=== PATIENT | male | born 1980 | race Caucasian/White ===

== ENCOUNTER 2020-06-01 06:18 | Day surgery (SDC) | payer OTHER ==
[2020-06-01] MEDS ORDERED: MORPHINE 4 MG/ML SYR ONE ×2 (07:07→08:51)
[2020-06-01] MEDS ORDERED: ONDANSETRON 4 MG/2 ML VIAL ONE ×2 (07:07→10:38)
[2020-06-01 07:27] LABS: Absolute Lymphocytes (CBC) 0.9 K/uL (0.7-4.9); Basophils % 0.3 % (0-1.3); Hematocrit 45.8 % (39.6-49.0); Lymphocytes % 6.7 % (15.3-44.8); MPV 9.7 fL (7.6-11.3)
[2020-06-01 07:35] LABS: Albumin 3.9 g/dL (3.4-5.0); Bilirubin Direct 0.2 mg/dL (0-0.2); Bilirubin Total 0.8 mg/dL (0.2-1.0); Potassium 3.7 mmol/L (3.5-5.1); Protein, Total 7.5 g/dL (6.4-8.2)
[2020-06-01] MEDS ORDERED: ACETAMINOPHEN 500 MG TAB ONE ×3 (07:46→07:49)
[2020-06-01] MEDS ORDERED: CEFTRIAXONE/SWI 1gm 1 GM/10 ML SYR ONE (07:46)
--- NOTE | 2020-06-01 07:48 | RAD REPORT ---
EXAM DESCRIPTION: CT - Abdomen Pelvis W Contrast - 06/01/2020 7:37 am CLINICAL HISTORY: Abdominal pain COMPARISON: none. TECHNIQUE: Computed axial tomography of the abdomen pelvis was obtained. 100 cc Isovue-300 was admin istered intravenously. Oral contrast was not requested which limits evaluation of bowel. All CT scans are performed using dose optimization technique as appropriate and may include automated exposure control or mA/KV adjustment according to patient size. FINDINGS: The liver, spleen, pancreas, adrenal and kidneys appear unremarkable. There is no evidence of diverticulitis. The appendix is dilated. It contains appendicolith. The appendix extends inferiorly from the cecum. N o abscess. No free air. Small inguinal hernias contain fat. Small umbilical hernia IMPRESSION: Appendicitis
--- NOTE | 2020-06-01 08:45 | ER ---
Nurse's Notes [facility] Name: Candido Ludwig Age: 39 yrs Sex: Male : 1980 Arrival Date: 06/01/2020 Time: 06:19 Bed 5 Private MD: Diagnosis: Acute appendicitis Presentation: 06/01 06:34 Chief complaint: Patient states: pain under bellybutton and right lower quad. that em started yesterday at 0630, reports N/V, denies fever. Coronavirus screen: Client denies travel out of the [place] in the last 14 days. Ebola Screen: Patient negative for fever greater than or equal to 101.5 degrees Fahrenheit, and additional compatible Ebola Virus Disease symptoms Patient denies exposure to infectious person. Patient denies travel to an Ebola-affected area in the 21 days before illness onset. No symptoms or risks identified at this time. Initial Sepsis Screen: Does the patient meet any 2 criteria? HR > 90 bpm. No. Patient's initial sepsis screen is negative. Does the patient have a suspected source of infection? No. Patient's initial sepsis screen is negative. Risk Assessment: Do you want to hurt yourself or someone else? Patient reports no desire to harm self or others. Onset of symptoms was May 31, 2020. 06:34 Method Of Arrival: Ambulatory em 06:34 Acuity: KUNAL 3 em Historical: - Allergies: 06:36 No Known Allergies; em - PMHx: 06:36 None; em - PSHx: 06:36 None; em - Immunization history:: Adult Immunizations up to date. - Social history:: Smoking status: Patient denies any tobacco usage or history of. Screenin:49 Abuse screen: Denies threats or abuse. Nutritional screening: No deficits noted. ea Tuberculosis screening: No symptoms or risk factors identified. Fall Risk IV access (20 points). Assessment: 06:49 General: Appears in no apparent distress. Behavior is calm, cooperative, appropriate ea for age. Pain: Denies pain. Neuro: Level of Consciousness is awake, alert, obeys commands, Oriented to person, place, time. Cardiovascular: Patient's skin is warm and dry. Respiratory: Airway is patent Respiratory effort is even, unlabored, Respiratory pattern is regular, symmetrical. GI: Abdomen is non-distended. GI: Reports lower abdominal pain. Derm: Skin is pink, warm \T\ dry. 07:27 Reassessment: Patient appears in no apparent distress at this time. Pt reports jl7 decreased pain, rated 0/10. Pt noted to be shivering, oral temp 100.7, ERD notified, see MAR for orders. Pt to CT at this time. 08:30 Reassessment: Patient appears in no apparent distress at this time. Patient and/or jl7 family updated on plan of care and expected duration. Pain level reassessed. Patient is alert, oriented x 3, equal unlabored respirations, skin warm/dry/pink. Pt reporting increased pain, rated 7/10, ERD notified, see MAR for orders. 09:11 Reassessment: Dr. Lechuga at bedside. jl7 09:24 Reassessment: EXTENSION SERVICE SPECIALIST at bedside. jl7 Vital Signs: 06:34 BP 116 / 88; Pulse 101; Resp 20; Temp 99.2; Pulse Ox 100% on R/A; Weight 81.65 kg; em Height 5 ft. 10 in. (177.80 cm); Pain 6/10; 07:26 BP 128 / 77; Pulse 105; Resp 19; Temp 100.7; Pulse Ox 100% ; Pain 0/10; jl7 08:53 BP 108 / 69; Pulse 103; Resp 15; Pulse Ox 97% ; jl7 09:24 Temp 102.2; jl7 06:34 Body Mass Index 25.83 (81.65 kg, 177.80 cm) em ED Course: 06:19 Patient arrived in ED. bp1 06:35 Jamie Isabel MD is Attending Physician. 7 06:35 Triage completed. em 06:36 Arm band placed on. em 06:48 Inserted saline lock: 20 gauge in left antecubital area, using aseptic technique. Blood ea collected. 06:49 Patient has correct armband on for positive identification. Bed in low position. Call ea light in reach. Side rails up X2. 07:16 Corby Gutierrez, RN is Primary Nurse. jb4 07:58 Attending Physician role handed off by Jamie Isabel MD ma2 07:58 Carlos Gilman MD is Attending Physician. ma2 08:17 Primary Nurse role handed off by Corby Gutierrez, COLLEEN bd 08:23 Corona Trujillo RN is Primary Nurse. jl7 08:44 David Lechuga MD is Hospitalizing Provider. ma2 09:24 No provider procedures requiring assistance completed. COVID swab sent to lab. Patient jl7 admitted, IV remains in place. intact, No redness/swelling at site. Administered Medications: 06:56 Drug: Zofran (Ondansetron) 4 mg Route: IVP; Site: left antecubital; ea 07:26 Follow up: Response: No adverse reaction; Nausea is decreased jl7 06:56 Drug: NS 0.9% 1000 ml Route: IV; Rate: 1000 ml; Site: left antecubital; ea 08:35 Follow up: IV Status: Completed infusion; IV Intake: 1000ml 7 06:57 Drug: morphine 4 mg Route: IVP; Site: left antecubital; ea 07:26 Follow up: Response: No adverse reaction; Pain is decreased jl7 07:55 Drug: Tylenol 1000 mg Route: PO; jl7 09:24 Follow up: Temp 102.2; Response: Temperature is increased jl7 07:55 Drug: Rocephin 1 grams Route: IV; Rate: calculated rate; Site: left antecubital; jl7 07:58 Follow up: Response: No adverse reaction; IV Status: Completed infusion 7 08:40 Drug: morphine 4 mg Route: IVP; Site: left antecubital; jl7 09:00 Follow up: Response: No adverse reaction; Pain is decreased 7 08:42 Drug: LevaQUIN 750 mg Volume: 150 ml; Route: IVPB; Infused Over: 90 mins; Site: left jl7 antecubital; 09:25 Follow up: IV Status: Infusion continued upon admission jl7 08:42 Drug: D5-1/2 NS 1000 ml Route: IV; Rate: 125 ml/hr; Site: left antecubital; jl7 09:25 Follow up: IV Status: Infusion continued upon admission [facility] Intake: 08:35 IV: 1000ml; Total: 1000ml. [facility] Outcome: 08:44 Decision to Hospitalize by Provider. ma2 09:24 Admitted to OR accompanied by nurse, via stretcher, with chart, Report called to villa Parker RN 09:24 Condition: stable 09:24 Discharge instructions given to patient, Instructed on the need for admit, Demonstrated understanding of instructions. 09:31 Patient left the ED. jl7 Signatures: Chloe Hill Edgar, RN RN Corby Javier RN RN jb4 Corona Trujillo RN RN jl7 Melissa Low RN RN ea Alzahri, Mohammad, MD MD ma2 Yue Denton Maurice, MD MD 7 Corrections: (The following items were deleted from the chart) 08:53 08:30 BP 108 / 69; Pulse 103bpm; Resp 15bpm; Pulse Ox 97%; jl7 jl7
--- NOTE | 2020-06-01 08:45 | EDPHYS ---
Physician Documentation [facility] Name: Candido Ludwig Age: 39 yrs Sex: Male : 1980 Arrival Date: 06/01/2020 Time: 06:19 Bed 5 Private MD: ED Physician Carlos Gilman HPI: 06/01 06:48 This 39 yrs old Male presents to ER via Ambulatory with complaints of Flank mh7 Pain, Vomiting. 06:48 The patient presents with abdominal pain in the periumbilical area. Onset: The mh7 symptoms/episode began/occurred last night. The symptoms do not radiate. Associated signs and symptoms: Pertinent positives: nausea and vomiting, Pertinent negatives: anorexia, blood in stools, chest pain, constipation, diarrhea, dysuria, fever, headache, hematuria, palpitations, shortness of breath, testicular pain, vomiting blood. The symptoms are described as intermittent, vague, waxing/waning. Modifying factors: The symptoms are alleviated by nothing, the symptoms are aggravated by nothing. Severity of pain: At its worst the pain was moderate last night, in the emergency department the pain is unchanged. Historical: - Allergies: 06:36 No Known Allergies; em - PMHx: 06:36 None; em - PSHx: 06:36 None; em - Immunization history:: Adult Immunizations up to date. - Social history:: Smoking status: Patient denies any tobacco usage or history of. ROS: 06:48 Constitutional: Negative for fever, chills, and weight loss, Eyes: Negative for injury, mh7 pain, redness, and discharge, ENT: Negative for injury, pain, and discharge, Neck: Negative for injury, pain, and swelling, Cardiovascular: Negative for chest pain, palpitations, and edema, Respiratory: Negative for shortness of breath, cough, wheezing, and pleuritic chest pain, Back: Negative for injury and pain, : Negative for injury, bleeding, discharge, and swelling, MS/Extremity: Negative for injury and deformity, Skin: Negative for injury, rash, and discoloration, Neuro: Negative for headache, weakness, numbness, tingling, and seizure, Psych: Negative for depression, anxiety, suicide ideation, homicidal ideation, and hallucinations, Allergy/Immunology: Negative for hives, rash, and allergies, Endocrine: Negative for neck swelling, polydipsia, polyuria, polyphagia, and marked weight changes, Hematologic/Lymphatic: Negative for swollen nodes, abnormal bleeding, and unusual bruising. Exam: 06:48 Head/Face: Normocephalic, atraumatic. Eyes: Pupils equal round and reactive to light, mh7 extra-ocular motions intact. Lids and lashes normal. Conjunctiva and sclera are non-icteric and not injected. Cornea within normal limits. Periorbital areas with no swelling, redness, or edema. Neck: Trachea midline, no thyromegaly or masses palpated, and no cervical lymphadenopathy. Supple, full range of motion without nuchal rigidity, or vertebral point tenderness. No Meningismus. Chest/axilla: Normal chest wall appearance and motion. Nontender with no deformity. No lesions are appreciated. Cardiovascular: Regular rate and rhythm with a normal S1 and S2. No gallops, murmurs, or rubs. Normal PMI, no JVD. No pulse deficits. Respiratory: Lungs have equal breath sounds bilaterally, clear to auscultation and percussion. No rales, rhonchi or wheezes noted. No increased work of breathing, no retractions or nasal flaring. 06:48 Back: No spinal tenderness. No costovertebral tenderness. Full range of motion. Skin: Warm, dry with normal turgor. Normal color with no rashes, no lesions, and no evidence of cellulitis. MS/ Extremity: Pulses equal, no cyanosis. Neurovascular intact. Full, normal range of motion. Neuro: Awake and alert, GCS 15, oriented to person, place, time, and situation. Cranial nerves II-XII grossly intact. Motor strength 5/5 in all extremities. Sensory grossly intact. Cerebellar exam normal. Normal gait. Psych: Awake, alert, with orientation to person, place and time. Behavior, mood, and affect are within normal limits. 06:48 Constitutional: The patient appears in no acute distress, alert, awake, uncomfortable. 06:48 Abdomen/GI: Inspection: abdomen appears normal, Bowel sounds: normal, in all quadrants, Palpation: moderate abdominal tenderness, in the umbilical area, right lower quadrant and left lower quadrant, Rectal exam: the exam is deferred, because of patient request, Indicators: McBurney's point is not tender, Lyles's sign is negative, Rovsing's sign is negative, Obturator sign is negative, Psoas sign is negative, Liver: no appreciated palpable abnormalities, Hernia: not appreciated. Vital Signs: 06:34 BP 116 / 88; Pulse 101; Resp 20; Temp 99.2; Pulse Ox 100% on R/A; Weight 81.65 kg; em Height 5 ft. 10 in. (177.80 cm); Pain 6/10; 07:26 BP 128 / 77; Pulse 105; Resp 19; Temp 100.7; Pulse Ox 100% ; Pain 0/10; jl7 08:53 BP 108 / 69; Pulse 103; Resp 15; Pulse Ox 97% ; jl7 09:24 Temp 102.2; jl7 06:34 Body Mass Index 25.83 (81.65 kg, 177.80 cm) em MDM: 06:59 Transition of care: After a detail discussion of the patient's case, care is 7 transferred to Carlos Gilman MD. 07:58 Patient medically screened. ma2 08:43 Differential diagnosis: gastritis, gastroesophageal reflux disease, Irritable bowel ma2 syndrome, Prostatitis, Pyelonephritis. Data reviewed: vital signs, nurses notes. Counseling: I had a detailed discussion with the patient and/or guardian regarding: the historical points, exam findings, and any diagnostic results supporting the discharge/admit diagnosis, the presence of at least one elevated blood pressure reading (>120/80) during this emergency department visit, the need for outpatient follow up. Response to treatment: the patient's symptoms have markedly improved after treatment. 06/01 07:28 Order name: CBC with Automated Diff; Complete Time: 07:58 EDMS 06/01 07:36 Order name: Basic Metabolic Panel; Complete Time: 07:58 EDMS 06/01 07:36 Order name: Liver (Hepatic) Function; Complete Time: 07:58 EDMS 06/01 07:36 Order name: Lipase; Complete Time: 07:58 EDMS 06/01 07:50 Order name: CT; Complete Time: 07:58 EDMS 06/01 08:48 Order name: Urine Dipstick--Ancillary (enter results) bd 06/01 06:48 Order name: IV Saline Lock; Complete Time: 06:55 [facility] 06/01 06:48 Order name: Labs collected and sent; Complete Time: 06:55 [facility] 06/01 06:52 Order name: Urine Dipstick-Ancillary (obtain specimen); Complete Time: 08:40 [facility] 06/01 08:07 Order name: NPO; Complete Time: 08:25 ma2 Administered Medications: 06:56 Drug: Zofran (Ondansetron) 4 mg Route: IVP; Site: left antecubital; ea 07:26 Follow up: Response: No adverse reaction; Nausea is decreased [facility] 06:56 Drug: NS 0.9% 1000 ml Route: IV; Rate: 1000 ml; Site: left antecubital; ea 08:35 Follow up: IV Status: Completed infusion; IV Intake: 1000ml [facility] 06:57 Drug: morphine 4 mg Route: IVP; Site: left antecubital; ea 07:26 Follow up: Response: No adverse reaction; Pain is decreased 7 07:55 Drug: Tylenol 1000 mg Route: PO; 7 09:24 Follow up: Temp 102.2; Response: Temperature is increased [facility] 07:55 Drug: Rocephin 1 grams Route: IV; Rate: calculated rate; Site: left antecubital; jl7 07:58 Follow up: Response: No adverse reaction; IV Status: Completed infusion 7 08:40 Drug: morphine 4 mg Route: IVP; Site: left antecubital; 7 09:00 Follow up: Response: No adverse reaction; Pain is decreased 7 08:42 Drug: LevaQUIN 750 mg Volume: 150 ml; Route: IVPB; Infused Over: 90 mins; Site: left 7 antecubital; 09:25 Follow up: IV Status: Infusion continued upon admission jl7 08:42 Drug: D5-1/2 NS 1000 ml Route: IV; Rate: 125 ml/hr; Site: left antecubital; 7 09:25 Follow up: IV Status: Infusion continued upon admission jl Disposition: 06/01/20 08:44 Hospitalization ordered by David Lechuga for Inpatient Admission. Preliminary diagnosis is Acute appendicitis. - Bed requested for Telemetry/MedSurg (Inpatient). - Status is Inpatient Admission. jl7 - Condition is Stable. - Problem is new. - Symptoms are unchanged. Signatures: Dispatcher [employer] Jordan Trent RN RN Corona Mahmood RN RN jl7 Melissa Low RN Carlos Jarrett ea, MD MD ma2 Jamie Isabel MD MD mh7 Corrections: (The following items were deleted from the chart) 08:19 08:16 Abdomen Pelvis W Con+CT.RAD.BRZ ordered. EDMS EDMS 08:52 08:16 BASIC METABOLIC PANEL+C.LAB.BRZ ordered. EDMS EDMS 08:52 08:16 CBC+H.LAB.BRZ ordered. EDMS EDMS 08:52 08:16 HEPATIC FUNCTION+C.LAB.BRZ ordered. EDMS EDMS 08:52 08:16 LIPASE+C.LAB.BRZ ordered. EDMS EDMS 09:31 08:44 Hospitalization Ordered by David Lechuga MD for Inpatient Admission. Preliminary jl7 diagnosis is Acute appendicitis. Bed requested for Telemetry/MedSurg (Inpatient). Status is Inpatient Admission. Condition is Stable. Problem is new. Symptoms are unchanged. ma2
[2020-06-01] MEDS ORDERED: Levofloxacin 750mg IV 750 MG/150 ML BAG IV ONE (08:51)
[2020-06-01] MEDS ORDERED: D5 0.45 NS 1,000 ML IV ONE (08:51)
[2020-06-01 09:18] LABS: Urine Blood NEGATIVE (NEG); Urine Glucose NEGATIVE (NEG); Urine Protein NEGATIVE (NEG); Urine pH 6.5 (5.0-7.0)
[2020-06-01] MEDS: NA CHLORIDE 0.9% 1,000 ML ONE ×2 (09:35→10:30)
[2020-06-01] MEDS ORDERED: Ringers Lactate 1,000 ML IV ONE ×3 (09:53→12:14)
[2020-06-01] MEDS ORDERED: FENTANYL CITR 100 MCG/2 ML ONE ×2 (10:35→11:30)
[2020-06-01] MEDS ORDERED: propofoL 200 MG/20 ML VIAL IV ONE (10:35)
[2020-06-01] MEDS ORDERED: dexAMETHasone 10 MG/ML VIAL ONE (10:36)
[2020-06-01] MEDS ORDERED: MIDAZOLAM HCL 2 MG/2 ML INJ ONE (10:36)
[2020-06-01] MEDS ORDERED: ROCURONIUM 50 MG/5 ML VIAL IV ONE (10:36)
[2020-06-01] MEDS ORDERED: KETOROLAC 30 MG/ML INJ ONE (10:36)
[2020-06-01] MEDS ORDERED: LIDOCAINE 2% MPF 5 ML VIAL ONE (10:36)
--- NOTE | 2020-06-01 10:36 | P.BOP ---
Preoperative diagnosis: acute appendicitis, umbilical hernia, bilateral inguinal hernias Postoperative diagnosis: same Primary procedure: 1. Laparoscopic appendectomy Secondary procedure: 2. open repair of incarcerated umbilical hernia Veterinary Livestock Inspector: DIANA PADGETT (STICKER MACHINE OPERATOR) Estimated blood loss: <10cc Specimen: araceli Findings: as above Anesthesia: General Complications: None Transferred to: Recovery Room Condition: Good
[2020-06-01] MEDS ORDERED: SUCCINYLCHOLINE 20 MG/ML (10 ML) IV ONE (10:41)
[2020-06-01] MEDS ORDERED: NS 0.9% VIAL 10 ML ONE (10:51)
[2020-06-01] MEDS ORDERED: Phenylephrine HCl 10 MG/ML 1 ML VIAL ONE (10:51)
--- NOTE | 2020-06-01 10:52 | HP ---
Date of Admission: 06/01/2020 Reason For Service: Right lower quadrant abdominal pain. History Of Present Illness: This is a case of a 39-year-old patient who complained of periumbilical right lower quadrant pain that started last night, associated with nausea, vomiting. Today, he decid ed to come to the ER. When he came to the ER, he was diagnosed with an acute appendicitis and a surg ical evaluation was requested. He denies any dysuria, hematuria, hematochezia, melena. He denies an y recent traveling out of the country. He denies any family member sick at home. Yesterday, he was eating [place] food with some friends and family and they are not sick. Allergies: NONE. Past Medical History: None. Surgical History: He has a lipoma removed from the neck at [facility]. We have no documentation of th at. Social History: He does not smoke. He does not drink alcohol. Review of Systems: Ten points otherwise unremarkable. See H and P. Physical Examination: GENERAL: The patient is awake, alert. HEENT: Pupils are equal and reactive, anicteric. Neck: Supple. Chest: Clear. Heart: S1, S2. Abdomen: Right lower quadrant tenderness with guarding and rebound. Rovsing sign positive. Genitalia: No tenderness. Rectal: Deferred. Extremities: Good capillary refill. Neuro: Cranial nerves 2 through 12 grossly within normal limits. Laboratory Data: Blood work shows WBC count of 14 with hemoglobin of 15. Creatinine is 1.07, BUN is 18. Sodium is 140. CAT scan of abdomen and pelvis interpreted by Dr. Putnam as acute appendicitis . Assessment: A 39-year-old patient with acute appendicitis. Plan: Laparoscopic, possible open appendectomy fully explained to the patient which include, but not limited to infection, bleeding, damage to adjacent structures, anesthesia complication, ME, even luiza th. He also understands this may not relieve symptoms. He might need more than one surgical interve ntion. He understood, signed a consent. The patient also was explained the CAT scan findings of umb ilical hernia and inguinal hernia. I might try to see if I can fix the umbilical hernia at this time . There is no guarantee, but definitely the inguinal hernias will be done electively. He understand s the importance of doing that electively since this is a contaminated procedure. He understood. He is aware of that. We will call the ER, emergently book the patient for appendectomy. RAVIN Voice ID: [id number]
[2020-06-01] MEDS ORDERED: GLYCOPYRROLATE 0.2 MG/ML SYR ONE (11:30)
[2020-06-01] MEDS ORDERED: NEOSTIGMINE 1 MG/ML -5 ML ONE (11:33)
[2020-06-01] MEDS ORDERED: PROMETHAZINE INJ 25 MG/ML AMP ONE (12:13)
[2020-06-01] MEDS ORDERED: HYDROMORPHONE HCL 2 MG/ML inj ONE (12:14)
--- NOTE | 2020-06-01 12:22 | OP ---
Date of Procedure: 06/01/2020 Surgeon: David Lechuga MD Improvement Auditor: ALEX Ibrahim Preoperative Diagnoses: Acute appendicitis, umbilical hernia, bilateral inguinal hernias. Postoperative Diagnoses: Acute appendicitis, umbilical hernia, bilateral inguinal hernias. Procedures: 1.Laparoscopic appendectomy emergently. 2.Open repair of incarcerated umbilical hernia. Estimated Blood Loss: Less than 10 mL. Specimen: Appendix. Finding: Acute appendicitis, incarcerated omentum on the hernia. Complications: None. Indications: This is a case of a 39-year-old patient comes to us with multiple medical problems, but now comes for emergent procedure due to acute appendicitis. Benefits, alternatives, and risks of ac ra laparoscopic possible open appendectomy and umbilical hernia repair fully explained to the patien t which include, but not limited to infection, bleeding, damage to adjacent structures, anesthesia co mplication, CO and even . He also understands this may not relieve his symptoms. He might need more than one surgical intervention. He understood and signed a consent. He understands the presen ce of bilateral inguinal hernias also, that may have to be repaired electively when the area and infe ction goes away. He understand that too. Description Of Procedure: The patient was brought to the operating room emergently, placed in supine position. Anesthesia was done without complication. Abdominal area was prepped and draped in usual sterile fashion. Marcaine 0.5% was injected for local anesthetic followed by sharp incision of the skin in the infraumbilical region. Incision was carried down to fascia, which was opened under direc t vision. We noticed the patient to have umbilical hernia. We were able to include that umbilical h ernia as part of the repair, so we removed the hernia sac, incarcerated omentum. The omentum was all owed to retract back into the abdominal cavity after fully inspected to make sure there was no bleedi ng. The hernia sac was removed. The fascial edges were clean. I proceeded to place a Vicryl #1 ins marlen the fascia. Janiya trocar was carefully introduced. No bleeding was obtained. I placed 2 more trocars 5 mm each one of them in the suprapubic and left lower quadrant area under direct visualizati on. This allowed me to take a look at the area of the appendix, appeared to look inflamed and erythe matous and asymmetrical in shape and color. The base of the appendix seemed to be spared, so we crea travon a window at the base of the appendix and transected that with Endo CHENCHO 45 mm 3.5 and the mesoappe ndix with Endo CHENCHO 45 mm 2.5. Further hemostasis was obtained with the help of hemoclips. The area was irrigated. Appendix removed from abdominal cavity using EndoCatch through umbilical incision. T he area was inspected once again, no bowel leak, no bleeding. At that moment, I proceeded to remove the trocars under direct vision, deflated pneumoperitoneum, closed the fascia with #1 Vicryl, irrigat ed subcutaneous tissue, closed with 3-0 chromic and skin with twin. Sponge count, instrument coun ts were correct. The patient tolerated the procedure well. The patient was sent to Recovery in stab le condition. DAISY/MACHO Voice ID: [id number] Report ID: [id number]
--- NOTE | 2020-06-01 12:28 | DS ---
Diagnoses: Acute appendicitis, umbilical hernia. Procedure: Laparoscopic appendectomy and open repair of incarcerated umbilical hernia. Disposition: Home. Activity: As tolerated. No heavy lifting. Plan: Follow up in my office in 1 week. Call for appointment at [phone]. Keep area dry for 48 hours , then may shower then may cover the staple line with triple antibiotics. If the patient feels good and pain can be controlled with p.o. medication, then, he is open to be going home today, but if he g oes home, then full liquid diet for today and tomorrow and then resume normal diet. No heavy lifting , no more than 20 pounds. DAISY/MACHO Voice ID: [id number] Report ID: [id number]
[2020-06-01 12:39] VITALS: BP 100/66; O2SAT 98
[2020-06-01 14:17] VITALS: TEMP 97.4
== END 2020-06-01 14:09 | disposition home or self-care (01) ==
LOC: ER 06:18 → DS 13:01
PROVIDERS: ATTEND Surgery
PROC: 0WQF0ZZ Repair Abdominal Wall, Open Approach (ICD-10-PCS; 2020-06-01)
PROC: 0DTJ4ZZ Resection of Appendix, Percutaneous Endoscopic Approach (ICD-10-PCS; principal; 2020-06-01 11:30)
DX: K35.80 Unspecified acute appendicitis (principal); K42.0 Umbilical hernia with obstruction, without gangrene; U07.1 COVID-19; K40.20 Bilateral inguinal hernia, without obstruction or gangrene, not specified as recurrent
CPT/HCPCS: 96365; 96361; 85025; 80048; 36415; 82565; 80076; 88302; 88304; 81003; 83690; 74177; 96375; 99285; 44970; 49587; U0003; Q9967; J2704; J0330; J2370; J2250; J3010 ×2; J1100; J2710; J0696; J7799; J7120 ×3; J7030; J2405 ×2; J1170; J2550

== ENCOUNTER 2020-06-04 10:51 | Observation (INO) | payer OTHER ==
--- NOTE | 2020-06-04 13:30 | ER ---
Nurse's Notes [facility] Name: Candido Ludwig Age: 39 yrs Sex: Male : 1980 Arrival Date: 06/04/2020 Time: 11:02 Bed 25 Private MD: Diagnosis: Hemorrhoids and perianal venous thrombosis Presentation: 06/04 11:03 Chief complaint: Patient states: Large Hemoriod and pain since yesterday. No bleeding, sv sever pain. Had appendectomy Monday. Coronavirus screen: Client denies travel out of the [place] in the last 14 days. Client reports previous positive COVID test result. Ebola Screen: Patient denies travel to an Ebola-affected area in the 21 days before illness onset. Initial Sepsis Screen: Does the patient meet any 2 criteria? No. Patient's initial sepsis screen is negative. Does the patient have a suspected source of infection? Yes:. Risk Assessment: Do you want to hurt yourself or someone else? Patient reports no desire to harm self or others. Onset of symptoms was June 03, 2020. 11:03 Method Of Arrival: Ambulatory sv 11:03 Acuity: KUNAL 3 sv Historical: - Allergies: 11:03 No Known Allergies; sv - PMHx: 11:03 None; sv - PSHx: 11:03 Appendectomy; sv - Immunization history:: Flu vaccine is not up to date. - Social history:: Smoking status: Patient denies any tobacco usage or history of. Screenin:26 Abuse screen: Denies threats or abuse. Nutritional screening: No deficits noted. vg1 Tuberculosis screening: No symptoms or risk factors identified. Fall Risk No fall in past 12 months (0 pts). No secondary diagnosis (0 pts). No IV (0 pts). Ambulatory Aid- None/Bed Rest/Nurse Assist (0 pts). Gait- Normal/Bed Rest/Wheelchair (0 pts) Mental Status- Oriented to own ability (0 pts). Total Hall Fall Scale indicates No Risk (0-24 pts). Assessment: 12:15 General: Appears in no apparent distress. uncomfortable, Behavior is calm, cooperative. vg1 Pain: Complains of pain in rectal area Pain currently is 8 out of 10 on a pain scale. Quality of pain is described as throbbing, Noted to be grimacing, resistant to movement. Neuro: Level of Consciousness is awake, alert, obeys commands, Oriented to person, place, time, situation. Cardiovascular: Patient's skin is warm and dry. Respiratory: Airway is patent Respiratory effort is even, unlabored. GI: Reports diarrhea, Parent/caregiver reports the patient having On Monday patient had a appendectomy and has had diarrhea since then. Denies straining and denies bleeding. : No signs and/or symptoms were reported regarding the genitourinary system. EENT: No signs and/or symptoms were reported regarding the EENT system. Derm: Skin is intact, is healthy with good turgor. Musculoskeletal: Circulation, motion, and sensation intact. 13:39 Reassessment: Spoke with rikki Ferro to verify if patient needs to have a Covid vg1 swab due to admit. Patient was seen on Monday for an appendectomy. Kasie stated Covid results for Monday are good for 10 days. Provider notified that patient does not need to received another Covid swab for current admit. 14:17 Reassessment: Patient appears in no apparent distress at this time. No changes from vg1 previously documented assessment. Patient and/or family updated on plan of care and expected duration. Pain level reassessed. Patient is alert, oriented x 3, equal unlabored respirations, skin warm/dry/pink. 17:18 Reassessment: Attempted to call report. vg1 Vital Signs: 11:03 BP 141 / 95; Pulse 70; Resp 17; Temp 98.4; Pulse Ox 99% on R/A; Weight 81.65 kg; Height sv 5 ft. 10 in. (177.80 cm); Pain 7/10; 12:15 BP 124 / 100; Pulse 65; Resp 16; Pulse Ox 100% on R/A; vg1 13:00 BP 138 / 99; Pulse 61; Resp 16; Pulse Ox 100% on R/A; vg1 14:00 BP 146 / 92; Pulse 77; Resp 14; Pulse Ox 98% on R/A; vg1 11:03 Body Mass Index 25.83 (81.65 kg, 177.80 cm) sv ED Course: 11:02 Patient arrived in ED. sv 11:02 Arm band placed on. sv 11:05 Triage completed. sv 12:23 Herminia Salter, RN is Primary Nurse. vg1 12:27 Louis Smith PA is PHCP. jr8 12:27 Samm Zapien MD is Attending Physician. jr8 12:27 Patient has correct armband on for positive identification. Bed in low position. Call vg1 light in reach. Side rails up X 1. 13:29 David Lechuga MD is Hospitalizing Provider. jr8 14:19 Initial lab(s) drawn, by ED staff, sent to lab. Inserted saline lock: 20 gauge in left vg1 antecubital area, using aseptic technique. ,using aseptic technique. Done by [employer] Student with Eric MACIAS. Blood collected. 14:25 Basic Metabolic Panel Sent. sv 14:25 CBC with Diff Sent. sv 17:52 No provider procedures requiring assistance completed. Patient admitted, IV remains in vg1 place. Administered Medications: 14:16 Drug: fentaNYL (PF) 75 mcg {Note: rass0.} Route: IVP; Site: left antecubital; vg1 15:52 Follow up: Response: No adverse reaction; Pain is decreased vg1 14:16 Drug: Zofran (Ondansetron) 4 mg Route: IVP; Site: left antecubital; vg1 15:30 Follow up: Response: No adverse reaction vg1 15:52 Follow up: Response: No adverse reaction; Nausea is decreased vg1 Outcome: 13:29 Decision to Hospitalize by Provider. jr8 17:52 Admitted to Med/surg accompanied by tech, via stretcher, room 404, with chart, Report vg1 called to COLLEEN MEHTA 17:52 Condition: stable 17:52 Instructed on the need for admit. 18:01 Patient left the ED. vg1 Signatures: Hermila Quintanilla RN RN Louis Smith PA PA jr8 Herminia Salter RN RN vg1 Corrections: (The following items were deleted from the chart) 12:26 12:15 Pain: Complains of pain in anus Pain currently is 8 out of 10 on a pain scale. vg1 Quality of pain is described as throbbing, Noted to be grimacing, resistant to movement, vg1
--- NOTE | 2020-06-04 13:30 | EDPHYS ---
Physician Documentation [facility] Name: Candido Ludwig Age: 39 yrs Sex: Male : 1980 Arrival Date: 06/04/2020 Time: 11:02 Bed 25 Private MD: ED Physician Samm Zapien HPI: 06/04 13:25 This 39 yrs old Male presents to ER via Ambulatory with complaints of Rectal jr8 Pain. 13:25 Onset: The symptoms/episode began/occurred acutely, yesterday. Context: the patient has jr8 a known history of hemorrhoids. Modifying factors: The symptoms are alleviated by nothing, The symptoms are aggravated by movement, sitting position. Associate signs and symptoms: The patient has no apparent associated signs or symptoms. The patient has not experienced similar symptoms in the past. The patient has been recently seen by a physician:. Patient stated that he recently had appendectomy this past Monday. Uncomplicated and had been doing well. History of hemorrhoids in past. Stated that he felt sore on a hemorrhoid yesterday but today is now much worse and with a lot more swelling . Historical: - Allergies: 11:03 No Known Allergies; sv - PMHx: 11:03 None; sv - PSHx: 11:03 Appendectomy; sv - Immunization history:: Flu vaccine is not up to date. - Social history:: Smoking status: Patient denies any tobacco usage or history of. ROS: 13:25 Eyes: Negative for injury, pain, redness, and discharge, ENT: Negative for injury, jr8 pain, and discharge, Neck: Negative for injury, pain, and swelling, Cardiovascular: Negative for chest pain, palpitations, and edema, Respiratory: Negative for shortness of breath, cough, wheezing, and pleuritic chest pain, Abdomen/GI: Negative for abdominal pain, nausea, vomiting, diarrhea, and constipation. Positive for rectal pain Back: Negative for injury and pain, MS/Extremity: Negative for injury and deformity, Skin: Negative for injury, rash, and discoloration, Neuro: Negative for headache, weakness, numbness, tingling, and seizure. Exam: 13:25 Constitutional: This is a well developed, well nourished patient who is awake, alert, jr8 and in no acute distress. Respiratory: Lungs have equal breath sounds bilaterally, clear to auscultation and percussion. No rales, rhonchi or wheezes noted. No increased work of breathing, no retractions or nasal flaring. Abdomen/GI: Soft, non-tender, with normal bowel sounds. No distension or tympany. No guarding or rebound. No evidence of tenderness throughout. Back: No spinal tenderness. No costovertebral tenderness. Full range of motion. Skin: Warm, dry with normal turgor. Normal color with no rashes, no lesions, and no evidence of cellulitis. MS/ Extremity: Pulses equal, no cyanosis. Neurovascular intact. Full, normal range of motion. Neuro: Awake and alert, GCS 15, oriented to person, place, time, and situation. Cranial nerves II-XII grossly intact. Motor strength 5/5 in all extremities. Sensory grossly intact. Cerebellar exam normal. Normal gait. 13:25 Abdomen/GI: Rectal exam: rectal tone normal, Stool: brown, hemorrhoid(s), internal, with inflammation, with pain, with thrombosis, the exam is chaperoned by the nurse. Vital Signs: 11:03 BP 141 / 95; Pulse 70; Resp 17; Temp 98.4; Pulse Ox 99% on R/A; Weight 81.65 kg; Height sv 5 ft. 10 in. (177.80 cm); Pain 7/10; 12:15 BP 124 / 100; Pulse 65; Resp 16; Pulse Ox 100% on R/A; vg1 13:00 BP 138 / 99; Pulse 61; Resp 16; Pulse Ox 100% on R/A; vg1 14:00 BP 146 / 92; Pulse 77; Resp 14; Pulse Ox 98% on R/A; vg1 11:03 Body Mass Index 25.83 (81.65 kg, 177.80 cm) sv MDM: 12:27 Patient medically screened. jr8 13:25 Data reviewed: vital signs, nurses notes, lab test result(s). Data interpreted: Pulse jr8 oximetry: on room air is 100 %. Interpretation: normal. Counseling: I had a detailed discussion with the patient and/or guardian regarding: the historical points, exam findings, and any diagnostic results supporting the discharge/admit diagnosis, lab results, the need for further work-up and treatment in the hospital. ED course: Spoke with Dr. Lechuga who saw patient in ED. Plans to take patient to surgery in the AM for thrombosed hemorrhoid . 06/04 13:17 Order name: CBC with Diff jr8 06/04 13:17 Order name: Basic Metabolic Panel jr8 06/04 13:18 Order name: CBC with Automated Diff; Complete Time: 14:13 EDMS 06/04 13:18 Order name: Basic Metabolic Panel; Complete Time: 14:13 EDMS 06/04 13:42 Order name: Type And Screen; Complete Time: 15:27 vg1 06/04 13:17 Order name: IV; Complete Time: 14:17 jr8 06/04 15:01 Order name: Diet Full Liquid; Complete Time: 15:02 vg1 Administered Medications: 14:16 Drug: fentaNYL (PF) 75 mcg {Note: rass0.} Route: IVP; Site: left antecubital; vg1 15:52 Follow up: Response: No adverse reaction; Pain is decreased vg1 14:16 Drug: Zofran (Ondansetron) 4 mg Route: IVP; Site: left antecubital; vg1 15:30 Follow up: Response: No adverse reaction vg1 15:52 Follow up: Response: No adverse reaction; Nausea is decreased vg1 Disposition: 06/05 06:05 Co-signature as Attending Physician, Samm Zapien MD I agree with the assessment and kdr plan of care. Disposition: 06/04/20 13:29 Hospitalization ordered by David Lechuga for Observation. Preliminary diagnosis is Hemorrhoids and perianal venous thrombosis. - Bed requested for Telemetry/MedSurg (Inpatient). - Status is Observation. vg1 - Condition is Stable. - Problem is new. - Symptoms are unchanged. Signatures: Dispatcher [employer] Hermila Lynch RN Samm Fung MD MD kdr Martinez, Eric em1 Louis Smith PA PA jr8 Herminia Salter RN RN vg1 Corrections: (The following items were deleted from the chart) 06/04 14:09 13:29 Hospitalization Ordered by David Lechuga MD for Observation. Preliminary em1 diagnosis is Hemorrhoids and perianal venous thrombosis. Bed requested for Telemetry/MedSurg (observation). Status is Observation. Condition is Stable. Problem is new. Symptoms are unchanged. jr8 17:14 14:09 06/04/2020 13:29 Hospitalization Ordered by David Lechuga MD for Observation. sv Preliminary diagnosis is Hemorrhoids and perianal venous thrombosis. Bed requested for [facility] ER HOLD. Status is Observation. Condition is Stable. Problem is new. Symptoms are unchanged. em1 18:01 17:14 06/04/2020 13:29 Hospitalization Ordered by David Lechuga MD for Observation. vg1 Preliminary diagnosis is Hemorrhoids and perianal venous thrombosis. Bed requested for Telemetry/MedSurg (Inpatient). Status is Observation. Condition is Stable. Problem is new. Symptoms are unchanged. sv
[2020-06-04] MEDS ORDERED: FENTANYL CITR 100 MCG/2 ML ONE (13:38)
[2020-06-04] MEDS ORDERED: ONDANSETRON 4 MG/2 ML VIAL ONE ×2 (13:38→17:12)
[2020-06-04 14:01] LABS: Absolute Lymphocytes (CBC) 1.5 K/uL (0.7-4.9); Basophils % 0.5 % (0-1.3); Hematocrit 42.2 % (39.6-49.0); Lymphocytes % 21.2 % (15.3-44.8); MPV 9.1 fL (7.6-11.3)
[2020-06-04] MEDS ORDERED: MORPHINE 4 MG/ML SYR IV PRN ×2 (14:10→21:38)
[2020-06-04 15:37] VITALS: BMI 25.8
[2020-06-04] MEDS: ONDANSETRON 4 MG/2 ML VIAL IV PRN ×2 (17:07→21:57)
[2020-06-04] MEDS ORDERED: MORPHINE 4 MG/ML SYR ONE (17:12)
[2020-06-04] MEDS ORDERED: INFLUENZA VACCINE (for 3y+) 0.5 ML DOSE IMVAC ONE (21:00)
[2020-06-04] MEDS ORDERED: HYDROCODONE/APAP 7.5/325 MG TAB PO PRN (21:37)
[2020-06-04] MEDS: CIPROFLOXACIN 400mg IV 400 MG/200 ML BAG IV SCH (21:56)
[2020-06-04] MEDS: NA CHLORIDE 0.9% 1,000 ML IV SCH (21:56)
[2020-06-05] MEDS: NA CHLORIDE 0.9% 1,000 ML IV SCH (04:20)
[2020-06-05 04:41] LABS: Absolute Lymphocytes (CBC) 1.9 K/uL (0.7-4.9); Basophils % 0.4 % (0-1.3); Hematocrit 39.5 % (39.6-49.0); Lymphocytes % 34.9 % (15.3-44.8); MPV 9.2 fL (7.6-11.3); RBC Red Blood Cell Count 4.42 M/uL (4.33-5.43)
[2020-06-05 05:01] LABS: Potassium 4.8 mmol/L (3.5-5.1)
[2020-06-05] MEDS: CIPROFLOXACIN 400mg IV 400 MG/200 ML BAG IV SCH (07:39)
[2020-06-05] MEDS ORDERED: Ringers Lactate 1,000 ML IV ONE (07:57)
[2020-06-05] MEDS ORDERED: ONDANSETRON 4 MG/2 ML VIAL ONE (08:30)
[2020-06-05] MEDS ORDERED: LIDOCAINE 2% MPF 5 ML VIAL ONE (08:30)
[2020-06-05] MEDS ORDERED: dexAMETHasone 10 MG/ML VIAL ONE (08:30)
[2020-06-05] MEDS ORDERED: propofoL 200 MG/20 ML VIAL IV ONE (08:30)
[2020-06-05] MEDS ORDERED: KETOROLAC 30 MG/ML INJ ONE (08:30)
[2020-06-05] MEDS ORDERED: MIDAZOLAM HCL 2 MG/2 ML INJ ONE (08:30)
[2020-06-05] MEDS ORDERED: KETAMINE HCL 500 MG/5 ML VIAL ONE (08:30)
[2020-06-05] MEDS ORDERED: FENTANYL CITR 100 MCG/2 ML ONE (08:30)
--- NOTE | 2020-06-05 09:06 | HP ---
Date of Admission: 06/04/2020 Diagnosis: Prolapse tender thrombosed hemorrhoid with perianal pain. History Of Present Illness: This is a case of a 39-year-old patient, who comes to the ER last night complaining of a large perianal bulging pain. The patient could not sit and so he comes to the ER an d he was diagnosed with the perianal mass. This patient was seen not too long ago. He said he has a n emergent appendectomy about a week ago uneventful. He is recovering well from that one. No abdomi nal pain. Tolerating diet. Having bowel movement. He has history of hemorrhoids in the past, but l ast time the hemorrhoids were okay. We noticed the sudden happened a few hours ago. He does not rem ember any reason for it. He is not constipated at this moment. He has some dinner today, but nothin g out of the usual. Denies any dysuria, hematuria, hematochezia, melena. Denies any recent travelin g out of the country. Denies any family member sick at home. Allergies: NONE. Past Medical History: None. Past Surgical History: Appendectomy. Social History: He does not smoke. He does not drink alcohol. Review of Systems: No shortness of breath. No chest pain. No fevers. See H and P. Ten points otherwise unremarkable. Physical Examination: General: The patient is awake and alert. HEENT: Pupils are equal, reactive, anicteric. Neck: Supple. Chest: Clear. Heart: S1 and S2. ABDOMEN: Soft and depressible. No guarding or rebound. No peritoneal signs. : In the perianal region, patient has a large mass have to be an about 4 cm, already tender, blue. Physical examination is limited due to perianal pain, but it looked like a very large external thro mbosed hemorrhoid. Extremities: Good capillary refill. Laboratory Data: Blood work shows WBC count of 6.9 with hemoglobin of 14 and potassium 4.0. Assessment: This is a 39-year-old patient with a perianal mass, cannot be done in the ER on the comp lete physical exam due to perianal tenderness. The patient ate, so we offered him examination under anesthesia, anoscopy, re-proctoscopy, possible hemorrhoidectomy with benefits, alternatives, and risk s including, but not limited to infection, bleeding, damage to adjacent structures, anesthesia compli cation, anal stricture, anal incontinence, MA and even . He also understands this may not relie ve any symptoms, he might need more than one surgical intervention. He is going to stay [facility] for pain control and then proceed with surgery. He understands the importance of no heavy liftin g and follow with his [employer] [facility]. If this mass shows something else in the pathology, then w vincent will address the issue accordingly. DAISY/MACHO Voice ID: [id number]
--- NOTE | 2020-06-05 09:49 | P.BOP ---
Preoperative diagnosis: perianal pain, thrombosed prolapsed hemorrhoid Postoperative diagnosis: same Primary procedure: EUA, Anoscopy, Rigid proctoscopy. external hemorrhoidectomy Estimated blood loss: <10cc Specimen: thrombosed prolapsed hemorrhoid Findings: thrombosed prolapsed hemorrhoid Anesthesia: General Complications: None Transferred to: Recovery Room Condition: Good
[2020-06-05 10:39] VITALS: O2SAT 99
[2020-06-05 12:55] VITALS: BP 121/73; TEMP 97.5
--- NOTE | 2020-06-29 11:28 | DS ---
Date of Discharge: 06/05/2020 Diagnoses: Perianal pain; thrombosed, prolapsed hemorrhoids. Procedures Performed: EUA, anoscopy, rigid proctoscopy, external hemorrhoidectomy. Disposition: Home. Activity: As tolerated. No heavy lifting. Plan: Plan: Follow up in my office in 1 week. Call for appointment at [phone]. Sitz baths 3 times a day and after every bowel movement. Medications: See orders. DAISY/MACHO Voice ID: [id number] Report ID: [id number]
--- NOTE | 2020-06-29 11:34 | OP ---
Date of Procedure: 06/05/2020 Surgeon: David Lechuga MD Preoperative Diagnoses: Perianal pain; thrombosed, prolapsed hemorrhoid. Postoperative Diagnoses: Perianal pain; thrombosed, prolapsed hemorrhoid. Procedures Performed: Examination under anesthesia, anoscopy, rigid proctoscopy, external hemorrhoid ectomy. Specimen: Thrombosed, prolapsed hemorrhoid. Finding: Thrombosed, prolapsed hemorrhoid. Anesthesia: General plus local. Indications: This is the case of a male, who comes to us very tender prolapsed hemorrhoid with throm bosis. The benefits, alternatives, and risks of EUA, anoscopy, proctoscopy, possible hemorrhoidectom y, anoscopy were fully explained to the patient which include, but not limited to infection, bleeding , damage to adjacent structures, anesthesia complication, anal stricture and incontinence, OK, and ev en . He also understands this may not relieve the symptoms. He might need more than one surgic al intervention. He understood, signed a consent. Description Of Proecdure: The patient was brought to the operating room, placed in supine position. Anesthesia was done without complication. A time-out was called. The patient was placed in lithoto my position. The perianal area was prepped and draped in usual sterile fashion. Rectal examination was done after time-out. Then, we proceeded to introduce under direct visualization a rigid proctosc ope advanced in the central lumen after insufflation under direct visualization. We went all the way about 15 cm. No masses seen. We noticed internal and external hemorrhoids and there was a large pr olapsed external hemorrhoid with some bleeding associated with it. At that moment, we removed that a agustín and then we put an anoscope with a window on the side that helped to visualize the anal canal, on ce again with the same findings. We have this external thrombosed hemorrhoid with bleeding, so we pr oceeded to open the anoderm. the hemorrhoidal plexus from the anal sphincter and transecte d the hemorrhoidal plexus with Harmonic Scalpel. The anoderm was approximated with 3-0 chromic after fully inspected and make sure there was no bleeding. The sphincter was preserved at all times. Minna gicel placed over the area. The area was evaluated. Once again, no bleeding. At that moment, I pro ceeded to remove the anoscope. The patient tolerated the procedure well. We injected local anesthet ic at the beginning of the case. The patient was sent to recovery in stable condition. Sponge count , instrument counts correct./ HM/MODL Voice ID: [id number] Report ID: [id number]
== END 2020-06-05 13:43 | disposition home or self-care (01) ==
LOC: ER 10:51 → ERHOLD 14:03 → 4TH 17:55
PROVIDERS: ADMIT Surgery; ATTEND Surgery
PROC: 0DJD8ZZ Inspection of Lower Intestinal Tract, Via Natural or Artificial Opening Endoscopic (ICD-10-PCS; 2020-06-05)
PROC: 06BY0ZC Excision of Hemorrhoidal Plexus, Open Approach (ICD-10-PCS; principal; 2020-06-05 08:45)
DX: K64.5 Perianal venous thrombosis (principal); K64.8 Other hemorrhoids; U07.1 COVID-19; Z98.890 Other specified postprocedural states
CPT/HCPCS: 46320; 45300; 85025 ×2; 80048 ×2; 36415; 86900; 86850; 86901; 88304; 96375; 96374; 99285; J2704; J2250; J3010 ×2; J1100; G0378 ×4; J7120; J7030; J2405 ×4; J0744 ×2

== ENCOUNTER 2021-01-11 01:54 | Emergency (ER) | payer OTHER ==
[2021-01-11 02:42] LABS: Protime INR 0.91
[2021-01-11 02:44] LABS: Absolute Lymphocytes (CBC) 2.8 K/uL (0.7-4.9); Basophils % 0.5 % (0-1.3); Hematocrit 46.8 % (39.6-49.0); Lymphocytes % 43.6 % (15.3-44.8); MPV 8.7 fL (7.6-11.3); RBC Red Blood Cell Count 5.26 M/uL (4.33-5.43)
[2021-01-11] MEDS ORDERED: KETOROLAC 30 MG/ML INJ ONE (02:46)
[2021-01-11 02:55] LABS: ALT/SGPT 54 U/L (12-78); AST/SGOT 26 U/L (15-37); Albumin 4.1 g/dL (3.4-5.0); Alkaline Phosphatase 90 U/L (45-117); BUN Blood Urea Nitrogen 19 mg/dL (7-18); Bicarbonate 24 mmol/L (21-32); Bilirubin Direct < 0.1 mg/dL (0-0.2); Bilirubin Total 0.5 mg/dL (0.2-1.0); Glucose Level 118 mg/dL (74-106); Magnesium 1.9 mg/dL (1.8-2.4); NT PRO-BNP 20 pg/mL (<125); Potassium 3.2 mmol/L (3.5-5.1); Protein, Total 7.6 g/dL (6.4-8.2); Sodium Level 140 mmol/L (136-145); Troponin (Emerg Dept Use Only) < 0.02 ng/mL (0.0-0.045)
[2021-01-11] MEDS ORDERED: POTASSIUM 25 MEQ EFFERV TAB ONE (03:28)
[2021-01-11] MEDS ORDERED: MAGNES/ALUMIN/SIMET 30ML UCUP ONE (03:40)
[2021-01-11] MEDS ORDERED: LIDOCAINE VISCOUS 2% SOLN 15 ML UDC ONE (03:41)
--- NOTE | 2021-01-11 05:13 | EDPHYS ---
Physician Documentation [facility] Name: Candido Ludwig Age: 40 yrs Sex: Male : 1980 Arrival Date: 01/11/2021 Time: 01:56 Bed 4 Private MD: ED Physician Yoel Aguilar HPI: 01/11 04:09 This 40 yrs old Male presents to ER via Wheelchair with complaints of Chest tw4 Pain > 30 y/o. 04:09 The patient or guardian reports chest pain that is located primarily in the anterior tw4 chest wall. Onset: today. The pain radiates to Associated signs and symptoms: The patient has no apparent associated signs or symptoms. The chest pain is described as burning. Duration: The patient or guardian reports multiple episodes, that wax and wane. Modifying factors: The symptoms are alleviated by nothing. the symptoms are aggravated by nothing. Severity of pain: At its worst the pain was mild in the emergency department the pain is unchanged. The patient has not experienced similar symptoms in the past. Historical: - Allergies: 02:20 No Known Allergies; em - PMHx: 02:20 None; em - PSHx: 02:20 Appendectomy; em - Immunization history:: Client reports having NOT received the Covid vaccine. - Social history:: Smoking status: Patient denies any tobacco usage or history of. ROS: 04:09 Constitutional: Negative for fever, chills, and weight loss, Eyes: Negative for injury, tw4 pain, redness, and discharge, ENT: Negative for injury, pain, and discharge, Neck: Negative for injury, pain, and swelling, Respiratory: Negative for shortness of breath, cough, wheezing, and pleuritic chest pain, Abdomen/GI: Negative for abdominal pain, nausea, vomiting, diarrhea, and constipation, Back: Negative for injury and pain, MS/Extremity: Negative for injury and deformity, Skin: Negative for injury, rash, and discoloration, Neuro: Negative for headache, weakness, numbness, tingling, and seizure. 04:09 Cardiovascular: Positive for chest pain, Negative for edema, orthopnea, palpitations, paroxysmal nocturnal dyspnea. Exam: 04:09 Constitutional: This is a well developed, well nourished patient who is awake, alert, tw4 and in no acute distress. Head/Face: Normocephalic, atraumatic. Chest/axilla: Normal chest wall appearance and motion. Nontender with no deformity. No lesions are appreciated. Cardiovascular: Regular rate and rhythm with a normal S1 and S2. No gallops, murmurs, or rubs. Normal PMI, no JVD. No pulse deficits. Respiratory: Lungs have equal breath sounds bilaterally, clear to auscultation and percussion. No rales, rhonchi or wheezes noted. No increased work of breathing, no retractions or nasal flaring. Abdomen/GI: Soft, non-tender, with normal bowel sounds. No distension or tympany. No guarding or rebound. No evidence of tenderness throughout. Vital Signs: 02:17 BP 144 / 94; Pulse 99; Resp 18; Temp 97.8; Pulse Ox 100% on R/A; Weight 81.65 kg; em Height 5 ft. 10 in. (177.80 cm); Pain 3/10; 02:35 BP 133 / 99; Pulse 77; Resp 15; Pulse Ox 100% on R/A; Pain 3/10; lp1 02:54 BP 131 / 93; Pulse 78; Resp 14; Pulse Ox 99% on R/A; lp1 03:22 BP 128 / 91; Pulse 80; Resp 18; Pulse Ox 100% on R/A; lp1 04:33 BP 120 / 88; Pulse 70; Resp 13; Pulse Ox 98% on R/A; lp1 05:03 BP 117 / 84; Pulse 66; Resp 13; Pulse Ox 98% on R/A; lp1 02:17 Body Mass Index 25.83 (81.65 kg, 177.80 cm) em MDM: 04:40 Differential diagnosis: abnormal EKG, cholecystitis, Cholelithiasis costochondritis, tw4 pulmonary embolus. Data reviewed: vital signs, nurses notes. Data interpreted: Pulse oximetry: Interpretation: normal. Counseling: I had a detailed discussion with the patient and/or guardian regarding: the historical points, exam findings, and any diagnostic results supporting the discharge/admit diagnosis, radiology results. 05:10 HEART Score: History: Slightly Suspicious (0), ECG: Normal (0), Age: < or = 45 years tw4 (0), Risk Factors: 1 or 2 risk factors (1), Troponin: < or = 1 x Normal Limit (0), Total Score = 1. The patient was not given aspirin in the Emergency Department. Counseling: I had a detailed discussion with the patient and/or guardian regarding: the presence of at least one elevated blood pressure reading (>120/80) during this emergency department visit. Special discussion: Based on the patient's history, exam, and Dx evaluation, there is no indication for emergent intervention or inpatient Tx. It is understood by the patient/guardian that if the Sx's persist or worsen they need to return immediately for re-evaluation. I discussed with the patient/guardian in detail that at this point there is no indication for admission to the hospital. It is understood, however, that if the symptoms persist or worsen the patient needs to return immediately for re-evaluation. ED course: Patient received complete instruction emergency room. Patient states the pain proved after Toradol. Patient states the pain for Dr. MARCELINO duong. Patient had a negative troponin x2. Patient's blood pressure normalized here in the emergency department. We have instructed the patient should follow his primary care physician regarding his hypertension and chest pain. Patient is instructed that should his symptoms worsen he should return to the emergency department. Patient understands the treatment plan and agrees.. 05:12 Patient medically screened. [facility] 01/11 02:20 Order name: Basic Metabolic Panel [facility] 01/11 02:20 Order name: CBC with Diff [facility] 01/11 02:20 Order name: LFT's [facility] 01/11 02:20 Order name: Magnesium [facility] 01/11 02:20 Order name: NT PRO-BNP [facility] 01/11 02:20 Order name: PT-INR [facility] 01/11 02:20 Order name: Troponin (emerg Dept Use Only) [facility] 01/11 02:20 Order name: XRAY Chest (1 view) [facility] 01/11 02:21 Order name: Basic Metabolic Panel [facility] 01/11 02:21 Order name: Liver (Hepatic) Function [facility] 01/11 04:08 Order name: Troponin (emerg Dept Use Only) [facility] 01/11 04:08 Order name: Troponin (Emerg Dept Use Only) [facility] 01/11 02:20 Order name: EKG; Complete Time: 02:21 [facility] 01/11 02:20 Order name: Cardiac monitoring; Complete Time: 02:27 01/11 02:20 Order name: EKG - Nurse/Tech; Complete Time: 02:4 01/11 02:20 Order name: IV Saline Lock; Complete Time: 01/11 02:20 Order name: Labs collected and sent; Complete Time: 01/11 02:20 Order name: O2 Per Protocol; Complete Time: 4 01/11 02:20 Order name: O2 Sat Monitoring; Complete Time: tw4 EC:09 Rhythm is regular. QRS [place] is Normal. IN interval is normal. QRS interval is normal. tw4 QT interval is normal. No Q waves. T waves are Normal. No ST changes noted. Clinical impression: Normal ECG. Interpreted by me. Reviewed by me. Administered Medications: Drug: Ketorolac 30 mg Route: IVP; Site: right antecubital; lp1 03:21 Follow up: Response: Pain is decreased lp1 03:20 Drug: GI Cocktail without - (Maalox Suspension 30 ml, Lidocaine Liquid 2 % 15 lp1 ml) Route: PO; 04:18 Follow up: Response: No adverse reaction lp1 03:22 Drug: Potassium Effervescent Tablet 50 mEq {Note: Verbal order per Dr. Aguilar .} Route: lp1 PO; 04:18 Follow up: Response: No adverse reaction lp1 Disposition Summary: 01/11/21 05:12 Discharge Ordered Location: Home tw4 Problem: new tw4 Symptoms: have improved tw4 Condition: Stable tw4 Diagnosis - Atypical chest pain tw4 Followup: tw4 - With: Private Physician - When: Upon discharge from the Emergency Department - Reason: Recheck today's complaints, Continuance of care, Re-evaluation by your physician Followup: tw4 - With: Geo Peña MD - When: Upon discharge from the Emergency Department - Reason: Recheck today's complaints, Continuance of care, Re-evaluation by your physician Followup: tw4 - With: Slick Hwang MD - When: Upon discharge from the Emergency Department - Reason: Recheck today's complaints, Continuance of care, Re-evaluation by your physician Discharge Instructions: - Discharge Summary Sheet tw4 - Nonspecific Chest Pain, Adult tw4 - Hypertension, Adult, [id number] tw4 - Managing Your Hypertension tw4 - Preventing Hypertension tw4 Forms: - Medication Reconciliation Form tw4 - Thank You Letter tw4 - Antibiotic Education tw4 - Prescription Opioid Use tw4 Signatures: Dispatcher [employer] Jordan Trent RN RN Shalini Goodman RN RN lp1 Yoel Aguilar MD MD tw4
--- NOTE | 2021-01-11 05:13 | ER ---
Nurse's Notes [facility] Name: Candido Ludwig Age: 40 yrs Sex: Male : 1980 Arrival Date: 01/11/2021 Time: 01:56 Bed 4 Private MD: Diagnosis: Atypical chest pain Presentation: 01/11 02:17 Chief complaint: Patient states: had substernal chest pain that radiates into neck, em woke him up out of bed, also reports nausea and shortness of breath. Coronavirus screen: Vaccine status: Patient reports being unvaccinated. Ebola Screen: Patient negative for fever greater than or equal to 101.5 degrees Fahrenheit, and additional compatible Ebola Virus Disease symptoms Patient denies exposure to infectious person. Patient denies travel to an Ebola-affected area in the 21 days before illness onset. No symptoms or risks identified at this time. Initial Sepsis Screen: Does the patient meet any 2 criteria? HR > 90 bpm. No. Patient's initial sepsis screen is negative. Does the patient have a suspected source of infection? No. Patient's initial sepsis screen is negative. Risk Assessment: Do you want to hurt yourself or someone else? Patient reports no desire to harm self or others. Onset of symptoms was January 11, 2021. 02:17 Method Of Arrival: Wheelchair em 02:17 Acuity: KUNAL 2 em Historical: - Allergies: 02:20 No Known Allergies; em - PMHx: 02:20 None; em - PSHx: 02:20 Appendectomy; em - Immunization history:: Client reports having NOT received the Covid vaccine. - Social history:: Smoking status: Patient denies any tobacco usage or history of. Screenin:35 Abuse screen: Denies threats or abuse. Denies injuries from another. Nutritional lp1 screening: No deficits noted. Tuberculosis screening: No symptoms or risk factors identified. Fall Risk Assessment: 02:20 General: Appears uncomfortable, Behavior is anxious. Pain: Complains of pain in chest lp1 Pain does not radiate. Pain currently is 3 out of 10 on a pain scale. Quality of pain is described as burning, heavy, Pain began suddenly. Neuro: Level of Consciousness is awake, alert, obeys commands, Oriented to person, place, time, situation. Cardiovascular: Patient's skin is warm and dry. Rhythm is regular. Respiratory: Respiratory effort is even, unlabored, Respiratory pattern is regular. GI: No signs and/or symptoms were reported involving the gastrointestinal system. : No signs and/or symptoms were reported regarding the genitourinary system. EENT: No signs and/or symptoms were reported regarding the EENT system. Derm: Skin is pink, warm \T\ dry. Musculoskeletal: No deficits noted. 03:21 Reassessment: Patient is alert, oriented x 3, equal unlabored respirations, skin lp1 warm/dry/pink. Reports burning to chest has decreased Patient states feeling better. Patient states symptoms have improved. 04:32 Reassessment: Patient appears in no apparent distress at this time. Patient is alert, lp1 oriented x 3, equal unlabored respirations, skin warm/dry/pink. reports no further changes after GI cocktail administered. Vital Signs: 02:17 BP 144 / 94; Pulse 99; Resp 18; Temp 97.8; Pulse Ox 100% on R/A; Weight 81.65 kg; em Height 5 ft. 10 in. (177.80 cm); Pain 3/10; 02:35 BP 133 / 99; Pulse 77; Resp 15; Pulse Ox 100% on R/A; Pain 3/10; lp1 02:54 BP 131 / 93; Pulse 78; Resp 14; Pulse Ox 99% on R/A; lp1 03:22 BP 128 / 91; Pulse 80; Resp 18; Pulse Ox 100% on R/A; lp1 04:33 BP 120 / 88; Pulse 70; Resp 13; Pulse Ox 98% on R/A; lp1 05:03 BP 117 / 84; Pulse 66; Resp 13; Pulse Ox 98% on R/A; lp1 02:17 Body Mass Index 25.83 (81.65 kg, 177.80 cm) em ED Course: 01:56 Patient arrived in ED. wm 02:10 Inserted saline lock: 20 gauge in right antecubital area, using aseptic technique. lp1 Blood collected. 02:13 Yoel Aguilar MD is Attending Physician. tw4 02:16 EKG done, by ED staff, reviewed by Yoel Aguilar MD. Patient maintains SpO2 em saturation greater than 95% on room air. 02:20 Triage completed. em 02:20 Arm band placed on. em 02:26 Shalini Montemayor, RN is Primary Nurse. lp1 02:29 XRAY Chest (1 view) In Process Unspecified. EDMS 02:36 Patient has correct armband on for positive identification. groundwater monitoring technician on. Pulse lp1 ox on. NIBP on. 04:17 Repeat lab(s) drawn. by mn, sent to lab. lp1 04:33 No provider procedures requiring assistance completed. lp1 05:13 Geo Peña MD is Referral Physician. tw4 05:13 Slick Hwang MD is Referral Physician. tw4 05:23 IV discontinued, No redness/swelling at site. Pressure dressing applied. lp1 Administered Medications: 02:27 Drug: Ketorolac 30 mg Route: IVP; Site: right antecubital; lp1 03:21 Follow up: Response: Pain is decreased lp1 03:20 Drug: GI Cocktail without - (Maalox Suspension 30 ml, Lidocaine Liquid 2 % 15 lp1 ml) Route: PO; 04:18 Follow up: Response: No adverse reaction lp1 03:22 Drug: Potassium Effervescent Tablet 50 mEq {Note: Verbal order per Dr. Aguilar .} Route: lp1 PO; 04:18 Follow up: Response: No adverse reaction lp1 Outcome: 05:12 Discharge ordered by . tw4 05:23 Discharged to home ambulatory, with significant other. lp1 05:23 Condition: good 05:23 Discharge instructions given to patient, Instructed on discharge instructions, follow up and referral plans. Demonstrated understanding of instructions, follow-up care. 05:23 Patient left the ED. lp1 Signatures: Dispatcher [employer] EDPA Jordan Maya, RN RN Shalini Montemayor, RN RN lp1 Yoel Aguilar MD MD tw4 Morena Cummings
[2021-01-11 05:30] VITALS: TEMP 97.8
[2021-01-11 05:35] VITALS: O2SAT 98
[2021-01-11 05:37] VITALS: BP 117/84
--- NOTE | 2021-01-11 07:17 | RAD REPORT ---
EXAM DESCRIPTION: RAD - Chest Single View - 01/11/2021 2:30 am CLINICAL HISTORY: CHEST PAIN COMPARISON: Chest Pa And Lat (2 Views) dated 04/17/2019 FINDINGS: Lines: None. Lungs: No evidence of edema or pneumonia. Pleural: No significant pleural effusions or pneumothorax. Cardiac: The heart size is within normal limits. Bones: No acute fractures. Other: IMPRESSION: No acute cardiopulmonary disease.
== END 2021-01-11 05:23 | disposition home or self-care (01) ==
LOC: ER 01:54
DX: R07.89 Other chest pain (principal)
CPT/HCPCS: 36415; 71045; 80048; 80076; 83735; 83880; 84484; 85025; 85610; 93005; 96374; 99285

== ENCOUNTER 2021-08-05 13:00 | Day surgery (SDC) | payer OTHER ==
[2021-08-03 11:44] LABS: Absolute Lymphocytes (CBC) 1.5 K/uL (0.7-4.9); Hematocrit 44.9 % (39.6-49.0); Lymphocytes % 34.6 % (15.3-44.8); MPV 8.7 fL (7.6-11.3); RBC Red Blood Cell Count 5.06 M/uL (4.33-5.43)
[2021-08-03 11:47] LABS: Protime INR 1.08
[2021-08-03 11:52] LABS: Potassium 4.7 mmol/L (3.5-5.1)
--- NOTE | 2021-08-03 11:58 | RAD REPORT ---
EXAM DESCRIPTION: Darell Garvey And Suellen (2 Views)08/03/2021 11:41 am CLINICAL HISTORY: Preop for vascular catheterization COMPARISON: 2020 FINDINGS: The lungs appear clear of acute infiltrate. The heart is normal size IMPRESSION: No acute abnormalities displayed
[~2021-08-05 13:00] MED LIST: HEPA 1000U/500MLS 2,000 UNIT/1,000 ML BAG IV ONE; LIDOCAINE 1% 20 ML MDV ONE
[2021-08-05] MEDS ORDERED: NA CHLORIDE 0.9% 500 ML ONE (13:02)
[2021-08-05] MEDS ORDERED: VERAPAMIL HCL 10 MG/4 ML VIAL IV ONE (13:58)
[2021-08-05] MEDS ORDERED: FENTANYL CITR 100 MCG/2 ML ONE (13:58)
[2021-08-05] MEDS ORDERED: CLOPIDOGREL 75 MG TABLET ONE (13:58)
[2021-08-05] MEDS ORDERED: HEPARIN 5000 UNIT/ML 1 ML VIAL ONE (13:58)
[2021-08-05] MEDS ORDERED: MIDAZOLAM HCL 2 MG/2 ML INJ ONE (13:58)
[2021-08-05] MEDS ORDERED: TICAGRELOR 90 MG TABLET PO ONE (13:59)
[2021-08-05] MEDS ORDERED: ASPIRIN 325 MG TAB ONE (13:59)
[2021-08-05] MEDS ORDERED: ATROPINE SULF 1 MG/10 ML SYR IV ONE (13:59)
[2021-08-05] MEDS ORDERED: METOPROLOL TARTRATE 5 MG/5 ML INJ IV ONE (14:22)
[2021-08-05 15:48] VITALS: BP 126/70; O2SAT 99
--- NOTE | 2021-08-06 00:41 | OP ---
Date of Procedure: 08/05/2021 Surgeon: WAGNER RUEDA Procedure Performed: 1.Selective coronary angiogram. 2.Left heart catheterization. Indication: Ongoing chest pain on exertion suggestive of unstable angina. Access: Right radial artery 6-Stateless closed with TR band. Complications: None. Anesthesia: Total sedation time was 20 minutes. Bleeding: Less than 10 mL. Description Of Procedure: After risks, benefits, and alternatives were explained, the patient agreed to procedure and signed a formal consent. The patient was brought into the cardiac catheterization laboratory, prepped and draped in usual sterile fashion. We access right radial artery using [employer]ote ic micropuncture kit and placed a 6-Stateless slender sheath and took 5-Stateless [place] 4.0 catheter into t he aortic root, engaged left main, right coronary artery and took standard views and then catheter wa s advanced over the wire into the LV. LVEDP was measured and pullback did not record any gradient. Catheter was removed, sheath was removed, and TR band was placed with good hemostasis. Findings: 1.Left main: Large and normal. 2.LAD: Large and normal. Normal diagonal branches. 3.Left circumflex: Moderate size and normal, nondominant. 4.RCA: Large dominant and normal. 5.Normal LVEDP of 10 mmHg. Conclusion: 1.Normal coronary arteries. 2.Normal LVEDP. Plan: Search for other causes of chest pain. SR/MODL Voice ID: [id number] Report ID: [id number]
== END 2021-08-05 16:10 | disposition home or self-care (01) ==
LOC: CCL 13:00
PROVIDERS: ATTEND Internal Medicine
DX: R07.9 Chest pain, unspecified (principal); E78.5 Hyperlipidemia, unspecified; Z20.822 Contact with and (suspected) exposure to COVID-19; Z82.49 Family history of ischemic heart disease and other diseases of the circulatory system
CPT/HCPCS: 85025; 80048; 36415; 85610; 85730; 71046; 93458; U0003; C1893; J1644 ×2; J3010; J7040; J2250; Q9966